=== PATIENT | female | born 1975 ===

== ENCOUNTER 2016-08-17 06:33 | Emergency (ER) | payer OTHER ==
[2016-08-17 06:52] VITALS: RESP 16
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
[2016-08-17 09:26] VITALS: BP 121/65; PULSE 75; TEMP 98
[2016-08-20 12:17] VITALS: O2SAT 98
== END 2016-08-17 09:20 | disposition home or self-care (01) ==
LOC: H.ER 06:33
DX: M54.2 Cervicalgia (principal); V43.52XA Car driver injured in collision with other type car in traffic accident, initial encounter; Y92.410 Unspecified street and highway as the place of occurrence of the external cause; M79.1 Myalgia